=== PATIENT | female | born 1995 | race Caucasian/White ===

== ENCOUNTER 2021-01-12 12:11 | Emergency (ER) | payer SELFPAY ==
[2021-01-12 13:31] LABS: HEMOGLOBIN 15.5 gm/dl (12.3-15.3); RED BLOOD COUNT 4.95 M/UL (4.00-5.10)
[2021-01-12 13:45] LABS: BUN/CREATININE RATIO 14 (0-10)
[2021-01-12] MEDS ORDERED: OMNICEF 300 MG300 MG PO (14:16)
[2021-01-12] MEDS ORDERED: ZOFRAN ODT 4 MG4 MG PO (14:17)
[2021-01-12] MEDS ORDERED: IBUPROFEN800 MG PO (14:17)
== END 2021-01-12 14:25 | disposition home or self-care (01) ==
LOC: ER1 12:11
PROVIDERS: Emergency Medicine
DX: N39.0 Urinary tract infection, site not specified (principal)
CPT/HCPCS: 80053; 81001; 83690; 84703; 85025; 87077; 87086; 87186; 96374; 96375; 99284; J0696; J1885